=== PATIENT | male | born 1975 | race Caucasian/White ===

== ENCOUNTER → 2017-02-01 | Outpatient (CLI) | payer OTHER ==
[~2017-02-01] MED LIST: LIDOCAINE 1% MDV 20ML VIAL As Ordered ONE
--- NOTE | 2017-02-01 13:49 | REP ---
THYROID ULTRASOUND: Real-time sonographic evaluation of the thyroid is performed and compared to a prior study of 01/01/2017. The right lobe measures 3.6 x 1.2 x 1.2 cm and the left lobe 3.6 x 1.2 x 1.5 cm. Once again, there is a complex cystic and solid nodule in the left lobe, wheelchair measures 8 x 7 x 6 mm, essentially unchanged since the prior exam. The nodule is also unchanged since the 08/18/2013 exam. IMPRESSION: Stable nodule left lobe of the thyroid. Signed by Lalo Miles MD 02/01/2017 04:14 P
--- NOTE | 2017-02-01 16:18 | REP ---
ULTRASOUND GUIDED LEFT THYROID BIOPSY: The procedure was performed under the direct supervision of Dr. Miles. The patient has a history of a 9 x 7 x 5 mm nodule in the left thyroid containing cystic and solid components seen on a previous ultrasound from [facility] performed on 01/01/2017. The risks and benefits of the procedure were explained to the patient and informed consent was obtained. The left thyroid nodule was localized using ultrasound guidance. The skin was prepped and draped in a sterile fashion. 1% lidocaine was used as a local anesthetic. Using ultrasound guidance four fine-needle aspirations were obtained using 25-gauge needles. The patient tolerated the procedure well and there were no immediate complications. After the appropriate amount of monitored convalescence the patient was discharged from the department. Reviewed by GIANCARLO Aldana 02/01/2017 05:04 PEdited and Signed by Lalo Miles MD 02/02/2017 03:35 P
== END ==
LOC: M RADPRO 12:38
PROVIDERS: ATTEND Physician Assistant
DX: D34 Benign neoplasm of thyroid gland (principal); E04.1 Nontoxic single thyroid nodule; Z88.0 Allergy status to penicillin; E78.5 Hyperlipidemia, unspecified; K21.9 Gastro-esophageal reflux disease without esophagitis

== ENCOUNTER 2018-04-23 09:14 | Emergency (ER) | payer BC, OTHER ==
[2018-04-23] MEDS: METOCLOPRAMIDE 10 MG TAB PO (10:20)
[2018-04-23] MEDS: KETOROLAC TROMETHAMINE 10 MG TAB PO (10:20)
== END 2018-04-23 10:47 | disposition home or self-care (01) ==
LOC: M ED 09:14
DX: R51 Headache (principal); R03.0 Elevated blood-pressure reading, without diagnosis of hypertension; R42 Dizziness and giddiness; F41.9 Anxiety disorder, unspecified; F17.200 Nicotine dependence, unspecified, uncomplicated; Z88.0 Allergy status to penicillin
CPT/HCPCS: 70450

== ENCOUNTER → 2018-05-31 | Outpatient (REF) | payer BC | LOC: M LAB REF 17:44 | DX: D37.02 Neoplasm of uncertain behavior of tongue (principal) | CPT/HCPCS: 88305 ==